=== PATIENT | male | born 1995 | race African-American/Black ===

== ENCOUNTER 2016-08-12 17:30 | Emergency (ER) | payer MEDICAID | END 2016-08-12 20:55 | disposition home or self-care (01) | LOC: D.ER 17:30 | DX: B34.9 Viral infection, unspecified (principal) ==

== ENCOUNTER 2017-08-12 06:20 | Emergency (ER) | payer MEDICAID | END 2017-08-12 07:36 | disposition home or self-care (01) | LOC: D.ER 06:20 | DX: S05.01XA Injury of conjunctiva and corneal abrasion without foreign body, right eye, initial encounter (principal); X58.XXXA Exposure to other specified factors, initial encounter; Y93.89 Activity, other specified; Y92.019 Unspecified place in single-family (private) house as the place of occurrence of the external cause ==

== ENCOUNTER 2017-08-15 17:32 | Emergency (ER) | payer MEDICAID | END 2017-08-15 20:00 | disposition home or self-care (01) | LOC: D.ER 17:32 | DX: J11.1 Influenza due to unidentified influenza virus with other respiratory manifestations (principal) ==

== ENCOUNTER 2017-08-24 19:43 | Emergency (ER) | payer MEDICAID | END 2017-08-24 22:31 | disposition home or self-care (01) | LOC: D.ER 19:43 | DX: S50.12XA Contusion of left forearm, initial encounter (principal); W20.8XXA Other cause of strike by thrown, projected or falling object, initial encounter; Y93.89 Activity, other specified; Y92.89 Other specified places as the place of occurrence of the external cause; M79.1 Myalgia ==

== ENCOUNTER 2017-11-20 04:12 | Emergency (ER) | payer BC | END 2017-11-20 05:31 | disposition home or self-care (01) | LOC: D.ER 04:12 | DX: L02.415 Cutaneous abscess of right lower limb (principal) ==

== ENCOUNTER 2017-12-11 02:51 | Emergency (ER) | payer BC ==
[~2017-12-11] VITALS: Ht 180.3 cm; Wt 122.7 kg
[2017-12-11 02:58] VITALS: Ht 180.3 cm; Wt 122.7 kg
[2017-12-11] MEDS ORDERED: ZPAK PO (04:41)
[2017-12-11] MEDS ORDERED: FLUTICASONE PRO16 GM NASAL (04:41)
[2017-12-11] MEDS ORDERED: PROMETHAZINE V120 M1 PO (04:41)
[2017-12-11 06:22] VITALS: BP 147/88
== END 2017-12-11 06:24 | disposition home or self-care (01) ==
LOC: D.ER 02:51
DX: M20.011 Mallet finger of right finger(s) (principal); J06.9 Acute upper respiratory infection, unspecified; R05 Cough; M79.644 Pain in right finger(s)

== ENCOUNTER 2019-07-30 09:50 | Emergency (ER) | payer MEDICAID ==
[~2019-07-30] VITALS: Ht 180.3 cm; Wt 141.8 kg
[~2019-07-30 09:50] MED LIST: FLUTICASONE PRO16 GM NASAL; PROMETHAZINE V120 M1 PO; ZPAK PO
[2019-07-30 10:06] VITALS: Ht 180.3 cm; Wt 141.8 kg
[2019-07-30 10:47] LABS: BASOPHILS 0.3 % (0-2); EOSINOPHILS 1.7 % (0-7); HEMATOCRIT 45.1 % (42.0-54.0); HEMOGLOBIN 15.7 g/dL (13.5-17.5); IMMATURE GRANULOCYTES 0.1 % (0-5); LYMPHOCYTES 27.8 % (15-50); MCH 27.6 pg (26.0-34.0); MCHC 34.8 g/dL (31.0-37.0); MCV 79.3 fL (80.0-100.0); MEAN PLATELET VOLUME 9.1 fL (7.4-10.4); MONOCYTES 11.3 % (2-11); NEUTROPHILS 58.8 % (40-80); PLATELET COUNT 262 10x3/uL (130-400); RBC 5.69 10x6/uL (4.20-6.10); RDW 13.1 % (11.5-14.5); WBC 7.1 10x3/uL (4.8-10.8)
[2019-07-30 10:51] LABS: CALCIUM 8.8 mg/dL (8.5-10.1); CARBON DIOXIDE 29.9 mmol/L (21.0-32.0); CREATININE - SERUM 1.5 mg/dL (0.6-1.3); POTASSIUM - SERUM 3.9 mmol/L (3.5-5.1)
[2019-07-30 10:57] LABS: ALBUMIN 3.6 g/dL (3.4-5.0); BILIRUBIN - TOTAL 0.59 mg/dL (0.2-1.3); C-REACTIVE PROTEIN 1.6 mg/dL (0.0-0.9); PROTEIN - SERUM 7.7 g/dL (6.4-8.2); URIC ACID 6.1 mg/dL (2.6-7.2)
[2019-07-30 11:54] LABS: ERYTHROCYTE SEDIMENTATION RATE 9 mm/hr (0-15)
[2019-07-30] MEDS ORDERED: DIFLUCAN100 MG PO (12:03)
[2019-07-30] MEDS ORDERED: CLEOCIN HCL300 MG PO (12:03)
[2019-07-30 12:17] VITALS: BP 152/88
== END 2019-07-30 12:19 | disposition home or self-care (01) ==
LOC: D.ER 09:50
PROVIDERS: Family Medicine
DX: L03.116 Cellulitis of left lower limb (principal); B35.3 Tinea pedis